=== PATIENT | female | born 1990 | race Two or more races ===

== ENCOUNTER 2019-09-04 09:33 | Emergency (ER) | payer MEDICAID, OTHER, SELFPAY ==
[~2019-09-04] VITALS: Ht 149.9 cm; Wt 72.4 kg
--- NOTE | 2019-09-04 10:01 | NUR ---
FIRST CONTACT WITH PT. 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 PT'S AOX4. RESPS EVEN AND UNLABORED. EDMD AT BEDSIDE TO EVALUATE AT THIS TIME.
--- NOTE | 2019-09-04 10:10 | NUR ---
PT AMB TO BR AND BACK TO ROOM WITH STEADY GAIT. UA SENT.
--- NOTE | 2019-09-04 10:11 | NUR ---
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 PELVIC EXAM CART IN THE ROOM. EDMD NOTIFIED.
--- NOTE | 2019-09-04 10:17 | NUR ---
PT IN US AT THIS TIME.
[2019-09-04 10:30] LABS: BASOPHILS # (AUTO) 0.03 x10^3/uL (0-0.1); BASOPHILS % (AUTO) 0 % (0-1); EOSINOPHILS # (AUTO) 0.17 x10^3/uL (0-0.4); EOSINOPHILS % (AUTO) 2 % (1-7); LYMPHOCYTES # (AUTO) 2.23 x10^3/uL (1-3.4); LYMPHOCYTES % (AUTO) 32 % (22-44); MD NO; MEAN CORPUSCULAR HEMOGLOBIN 30.2 pg (27.0-34.8); MEAN CORPUSCULAR HGB CONC 33.4 g/dL (32.4-35.8); MEAN CORPUSCULAR VOLUME 90.6 fL (80-100); MEAN PLATELET VOLUME 8.4 fL (7.4-10.4); MONOCYTES # (AUTO) 0.41 x10^3/uL (0.2-0.8); MONOCYTES % (AUTO) 6 % (2-9); NEUTROPHILS # (AUTO) 4.15 x10^3/uL (1.8-6.8); NEUTROPHILS % (AUTO) 60 % (42-75); PLATELET COUNT 242 x10^3/uL (130-400); RED BLOOD COUNT 4.72 x10^6/uL (3.82-5.3); RED CELL DISTRIBUTION WIDTH 14.4 % (9.6-15.2)
[2019-09-04 10:40] LABS: CULTURE INDICATED? YES; MICROSCOPIC INDICATED
--- NOTE | 2019-09-04 10:42 | NUR ---
PT BACK TO ROOM FROM US AT THIS TIME. EDMD NOTIFIED.
--- NOTE | 2019-09-04 11:13 | NUR ---
PT RESTING IN [facility]. PT'S AOX4. RESPS EVEN AND UNLABORED. BP/SPO2 MONITORS IN PLACE. CALL LIGHT WITHIN REACH.
[2019-09-04 11:56] LABS: CLUE CELLS NONE SEEN (NONE SEEN); WET PREP WBCS FEW (FEW)
[2019-09-04 12:10] VITALS: BP 125/65
--- NOTE | 2019-09-04 12:35 | NUR ---
Patient given discharge instructions and they have confirmed that they understand the instructions. Patient ambulatory with steady gait.
== END 2019-09-04 12:36 | disposition home or self-care (01) ==
LOC: ED 10:53
DX: O20.0 Threatened abortion (principal); O23.11 Infections of bladder in pregnancy, first trimester; Z3A.01 Less than 8 weeks gestation of pregnancy
CPT/HCPCS: 36415; 76801; 81001; 84702; 85025; 86901; 87086; 87210; 87491; 87591; 87808; 99284

== ENCOUNTER 2020-03-25 18:40 | Outpatient (CLI) | payer OTHER ==
[~2020-03-25] VITALS: Ht 149.9 cm; Wt 59.0 kg
[2020-03-25 19:22] VITALS: BP 115/73
[2020-03-25 19:31] LABS: MICROSCOPIC INDICATED
== END 2020-03-25 20:12 | disposition home or self-care (01) ==
LOC: LDOP 18:40
PROVIDERS: ATTEND Obstetrics & Gynecology
DX: O26.893 Other specified pregnancy related conditions, third trimester (principal); R10.9 Unspecified abdominal pain; Z3A.36 36 weeks gestation of pregnancy
CPT/HCPCS: 59025; 81001; 87086

== ENCOUNTER 2020-04-19 09:01 | Inpatient (IN) | payer OTHER ==
[~2020-04-19] VITALS: Ht 149.9 cm; Wt 73.6 kg
[2020-04-19] MEDS ORDERED: PREN1TAB60 PO (09:13)
[2020-04-19] MEDS ORDERED: AMPICILLIN 2 GM in SODIUM CHLORIDE 0.9% 100 ML IVPB STA (09:13)
[2020-04-19] MEDS ORDERED: OXYTOCIN 30U/ 0.9% NaCL 500ML 500 ML IV ONE (09:13)
[2020-04-19] MEDS ORDERED: NEWBORN KIT ONE (09:21)
[2020-04-19] MEDS ORDERED: MISOPROSTOL 200 MCG TABLET ONE (09:22)
[2020-04-19] MEDS ORDERED: OXYTOCIN 30U/ 0.9% NaCL 500ML 500 ML ONE ×2 (09:22→13:08)
[2020-04-19] MEDS ORDERED: LIDOCAINE 1%, 20ML ONE (09:22)
[2020-04-19] MEDS: LACTATED RINGERS 1,000 ML IV SCH ×4 (09:28→18:08)
[2020-04-19] MEDS ORDERED: FENTANYL PF 100 MCG/2ML IVPush PRN (09:30)
[2020-04-19] MEDS ORDERED: FENTANYL PF 100 MCG/2ML IV PRN (09:30)
[2020-04-19] MEDS ORDERED: TERBUTALINE 1 MG/ML, 1ML SQ PRN (09:30)
[2020-04-19] MEDS ORDERED: TERBUTALINE 1 MG/ML, 1ML IVPush PRN (09:30)
[2020-04-19] MEDS ORDERED: ONDANSETRON 2MG/ML, 2ML IVPush PRN (09:30)
[2020-04-19 09:32] VITALS: BP 158/97
[2020-04-19 09:38] LABS: BASOPHILS # (AUTO) 0.01 x10^3/uL (0-0.1); BASOPHILS % (AUTO) 0 % (0-1); EOSINOPHILS # (AUTO) 0.07 x10^3/uL (0-0.4); EOSINOPHILS % (AUTO) 1 % (1-7); LYMPHOCYTES # (AUTO) 1.74 x10^3/uL (1-3.4); LYMPHOCYTES % (AUTO) 16 % (22-44); MD NO; MEAN CORPUSCULAR HGB CONC 32.5 g/dL (32.4-35.8); MEAN PLATELET VOLUME 8.2 fL (7.4-10.4); MONOCYTES % (AUTO) 5 % (2-9); NEUTROPHILS # (AUTO) 8.37 x10^3/uL (1.8-6.8); NEUTROPHILS % (AUTO) 78 % (42-75); PLATELET COUNT 235 x10^3/uL (130-400); RED BLOOD COUNT 4.01 x10^6/uL (3.82-5.3); RED CELL DISTRIBUTION WIDTH 14.7 % (9.6-15.2)
[2020-04-19] MEDS ORDERED: FENTANYL PF 100 MCG/2ML ONE (09:44)
[2020-04-19 09:50] LABS: ALANINE AMINOTRANSFERASE 20 U/L (12-78); ALBUMIN 2.4 g/dL (3.4-5.0); ANION GAP 10 mmol/L (5-15); BILIRUBIN, DIRECT 0.1 mg/dL (0.1-0.2); CALCIUM 8.6 mg/dL (8.5-10.1); CHLORIDE 111 mmol/L (98-107)
[2020-04-19 09:52] LABS: ALKALINE PHOSPHATASE 170 U/L (45-117); BILIRUBIN,TOTAL 0.3 mg/dL (0.2-1.0)
[2020-04-19] MEDS ORDERED: PLEASE ENTER HEIGHT AND WEIGHT MC SCH (10:00)
[2020-04-19] MEDS ORDERED: FENTANYL/BUPIV./NS/PF 250 ML EPIDCONT SCH ×2 (10:08→18:30)
[2020-04-19] MEDS ORDERED: BUPIVACAINE 0.25% ONE (10:12)
[2020-04-19] MEDS ORDERED: LIDOCAINE/PF 1.5% EPI 1:200K, 10 ML ONE (10:13)
[2020-04-19] MEDS ORDERED: FENTANYL/BUPIV./NS/PF 250 ML EPIDCONT ONE (10:18)
[2020-04-19] MEDS ORDERED: NALOXONE 0.4 MG/ML, 1ML IVPush PRN (10:30)
[2020-04-19] MEDS ORDERED: LACTATED RINGERS 1,000 ML IVBOLUS PRN (10:30)
[2020-04-19] MEDS ORDERED: EPHEDRINE 50 MG/ML, 1ML IVPush PRN (10:30)
[2020-04-19 11:04] LABS: MICROSCOPIC INDICATED
[2020-04-19 11:10] LABS: CREATININE,URINE RANDOM 51.2 mg/dL
[2020-04-19] MEDS ORDERED: MISOPROSTOL 200 MCG TABLET PR PRN (13:30)
[2020-04-19] MEDS ORDERED: HYDROcodone/APAP 5/325 TABLET PO PRN (13:30)
[2020-04-19] MEDS ORDERED: METHYLERGONOVINE 0.2 MG/ML IM PRN (13:30)
[2020-04-19] MEDS ORDERED: OXYTOCIN 10 UNITS/ML, 1ML IM PRN (13:30)
[2020-04-19] MEDS ORDERED: ACETAMINOPHEN 325 MG TABLET PO PRN (13:30)
[2020-04-19] MEDS ORDERED: ONDANSETRON 2MG/ML, 2ML IV PRN (13:30)
[2020-04-19] MEDS ORDERED: CARBOPROST TROMETHAMINE 250 MCG/ML, 1ML IM PRN (13:30)
[2020-04-19] MEDS ORDERED: SIMETHICONE 80 MG CHEW TAB PO PRN (13:30)
[2020-04-19] MEDS: OXYTOCIN 30U/ 0.9% NaCL 500ML 500 ML IV SCH ×2 (13:53→23:02)
[2020-04-19] MEDS ORDERED: AMPICILLIN 1 GM in SODIUM CHLORIDE 0.9% 100 ML IVPB SCH (14:00)
[2020-04-19 15:25] VITALS: BP 132/83
[2020-04-19] MEDS ORDERED: PRENATAL VIT/IRON/FA 1 EACH TABLET ONE (18:03)
[2020-04-19] MEDS: PRENATAL VIT/IRON/FA 1 EACH TABLET PO SCH (18:06)
[2020-04-19] MEDS: DOCUSATE 100 MG CAPSULE PO PRN ×2 (18:06→22:30)
[2020-04-19] MEDS: IBUPROFEN 600 MG TABLET PO PRN (18:06)
[2020-04-19 20:30] VITALS: BP 106/75
[2020-04-19 21:16] LABS: BASOPHILS # (AUTO) 0.02 x10^3/uL (0-0.1); BASOPHILS % (AUTO) 0 % (0-1); EOSINOPHILS # (AUTO) 0.06 x10^3/uL (0-0.4); EOSINOPHILS % (AUTO) 1 % (1-7); LYMPHOCYTES # (AUTO) 1.93 x10^3/uL (1-3.4); LYMPHOCYTES % (AUTO) 17 % (22-44); MD NO; MEAN CORPUSCULAR HEMOGLOBIN 27.6 pg (27.0-34.8); MEAN CORPUSCULAR HGB CONC 31.8 g/dL (32.4-35.8); MEAN CORPUSCULAR VOLUME 86.8 fL (80-100); MEAN PLATELET VOLUME 8.7 fL (7.4-10.4); MONOCYTES # (AUTO) 0.69 x10^3/uL (0.2-0.8); MONOCYTES % (AUTO) 6 % (2-9); NEUTROPHILS # (AUTO) 8.98 x10^3/uL (1.8-6.8); NEUTROPHILS % (AUTO) 77 % (42-75); PLATELET COUNT 228 x10^3/uL (130-400); RED BLOOD COUNT 3.89 x10^6/uL (3.82-5.3); RED CELL DISTRIBUTION WIDTH 14.4 % (9.6-15.2)
[2020-04-19] MEDS: HYDROcodone/APAP 5/325 TABLET PO PRN (22:30)
[2020-04-20 00:20] VITALS: BP 107/69
[2020-04-20] MEDS: LACTATED RINGERS 1,000 ML IV SCH ×2 (02:08→10:08)
[2020-04-20] MEDS: IBUPROFEN 600 MG TABLET PO PRN ×4 (02:22→22:56)
[2020-04-20] MEDS: HYDROcodone/APAP 5/325 TABLET PO PRN ×3 (02:23→22:56)
[2020-04-20 03:51] VITALS: BP 119/65
[2020-04-20 08:15] VITALS: BP 113/75
[2020-04-20] MEDS: OXYTOCIN 30U/ 0.9% NaCL 500ML 500 ML IV SCH (09:02)
[2020-04-20] MEDS: PRENATAL VIT/IRON/FA 1 EACH TABLET PO SCH (09:31)
[2020-04-20] MEDS: DOCUSATE 100 MG CAPSULE PO PRN ×2 (09:31→22:56)
[2020-04-20 19:20] VITALS: BP 126/87
[2020-04-21 07:30] VITALS: BP 123/80
[2020-04-21] MEDS: DOCUSATE 100 MG CAPSULE PO PRN (07:52)
[2020-04-21] MEDS: PRENATAL VIT/IRON/FA 1 EACH TABLET PO SCH (07:52)
[2020-04-21] MEDS: IBUPROFEN 600 MG TABLET PO PRN (07:53)
[2020-04-21] MEDS: HYDROcodone/APAP 5/325 TABLET PO PRN ×2 (07:53→13:09)
[2020-04-21] MEDS ORDERED: HYDR-3240 PO (11:22)
[2020-04-21] MEDS ORDERED: IBUP-1222 PO (11:22)
[2020-04-21] MEDS ORDERED: SENN-92 PO (11:23)
== END 2020-04-21 13:34 | disposition home or self-care (01) | DRG 807 ==
LOC: LDOP 09:01 → LDIP 09:37 → 2NW 15:00
PROVIDERS: ADMIT Obstetrics & Gynecology; ATTEND Obstetrics & Gynecology
PROC: 10E0XZZ Delivery of Products of Conception, External Approach (ICD-10-PCS; principal; 2020-04-19)
PROC: 0HQ9XZZ Repair Perineum Skin, External Approach (ICD-10-PCS; 2020-04-19)
DX: O99.824 Streptococcus B carrier state complicating childbirth (principal); Z37.0 Single live birth; O70.0 First degree perineal laceration during delivery; Z3A.38 38 weeks gestation of pregnancy
CPT/HCPCS: 36415; 80053; 81001; 82248; 82570; 84156; 84550; 85025; 86592; 86850; 86900; G0378; J0290; J3010; J3490; J2590; J7120